=== PATIENT | female | born 2000 | race Two or more races ===

== ENCOUNTER 2023-07-23 10:37 | Emergency (ER) | payer OTHER, SELFPAY ==
[2023-07-23] VITALS (7 sets, daily range): BP systolic 111–139; BP diastolic 67–89; PULSE 72–96; RESP 16–18; TEMP 36.6; O2SAT 97–98; BMI 35.2
--- NOTE | 2023-07-23 10:55 | ECG_ITS ---
Test Reason : CP Blood Pressure : / mmHG Vent. Rate : 068 BPM Atrial Rate : 068 BPM P-R Int : 168 ms QRS Dur : 082 ms QT Int : 410 ms P-R-T Axes : 060 -01 003 degrees QTc Int : 435 ms Normal sinus rhythm with sinus arrhythmia Nonspecific T wave abnormality Abnormal ECG No previous ECGs available Referred By: Generic ED Physician Electronically Signed By:VERÓNICA MCKEON
[2023-07-23 11:16] LABS: MANUAL DIFF FLAG NO
[2023-07-23 11:20] LABS: Basophils Percent Auto 0.3 % (0-2); Eosinophils Absolute Auto 0.2 X10*3/uL (0.0-0.4); Eosinophils Percent Auto 2.7 % (0-4); Hematocrit 36.7 % (37.0-47.0); Hemoglobin 12.4 g/dl (12.0-16.0); Imm Gran Abs Auto 0.02 X10*3/uL (0.00-0.03); Imm Gran Pct Auto 0.2 % (0.0-0.4); Lymphocytes Absolute Auto 1.5 X10*3/uL (1.2-4.9); Mean Corpuscular HGB Conc 33.8 g/dl (31.0-35.0); Mean Corpuscular Hemoglobin 27.9 pg (27.0-33.0); Mean Corpuscular Volume 82.7 fL (80.0-98.0); Mean Platelet Volume 12.3 fL (9.4-12.3); Monocytes Absolute Auto 0.4 X10*3/uL (0.1-1.2); Monocytes Percent Auto 4.5 % (2-11); Neutrophils Absolute Auto 6.5 x10*3/uL (2.0-8.3); Neutrophils Percent Auto 75.3 % (45-73); Platelet Count 182 X10*3/uL (160-400); Red Blood Count 4.44 X10*6/uL (4.20-5.50); Red Cell Distribution Width 12.5 % (11.0-16.0); White Blood Count 8.6 X10*3/uL (4.8-10.8)
[2023-07-23 11:34] LABS: Anion Gap 12 (12-20); Blood Urea Nitrogen 10 mg/dL (9-16); Calcium 9.3 mg/dL (8.4-10.2); Carbon Dioxide 23 mmol/L (22-29); Chloride 110 mmol/L (96-108); Creatinine Clr Calc Pharmacy 123.6; Estimated Glomerular Filt Rate > 60; Glucose Random 115 mg/dL (60-115); Potassium 3.9 mmol/L (3.3-5.1); Sodium 141 mmol/L (135-145)
[2023-07-23] MEDS: Ondansetron ODT 4 MG TAB.RAPDIS TRANSLINGU (11:38)
[2023-07-23 11:46] LABS: Troponin-I High Sensitivity < 2.7 ng/L (<3.5-17.0)
--- NOTE | 2023-07-23 13:03 | ED.SYNCOPE ---
HPI - Syncope General Chief Complaint: Syncope Stated Complaint: syncope episode, per ems Time Seen by Provider: 07/23/23 13:01 Source: patient Mode of arrival: EMS Limitations: no limitations History of Present Illness HPI narrative: 19-year-old female with no PMHx presenting to the ED today via EMS s/p syncopal episode at work prior to arrival with no physical complaints. Reports squinting to read something on the computer when the computer brightness began irritating her eyes and she became clammy and felt faint, causing her to lose consciousness and fall. Denies hitting her head. The fall was witnessed by coworkers. Not on anticoagulation. Was not confused upon waking up, the episode lasted only a few seconds. Was able to stand up and ambulate afterwards. Coworkers called EMS. She states that she has had very little sleep and poor p.o. intake for the last day. Admits to chronic chest discomfort and palpitations since she was a child. Cannot recall if she was ever diagnosed with anything. Report remote history of binge eating disorder. Reports recent family stressors however feels safe at home. Father at bedside. Headache, dizziness, confusion, fever, chills, vision changes, SOB, abdominal pain, numbness/tingling/weakness of the extremities. Related Data Allergies Allergy/AdvReac Type Severity Reaction Status Date / Time No Known Allergies Allergy Verified 07/23/23 10:50 Review of Systems Review of Systems: Constitutional: No fever, No chills, No fatigue, No malaise ENT/Mouth: No ear pain, No hearing loss,? No nasal congestion, No sinus pain, No rhinorrhea Eyes: No eye pain, No swelling, No redness, No vision changes, No foreign body, No discharge Cardio: + chest pain, + palpitations, No dyspnea on exertion, No orthopnea, No edema Respiratory: No SOB, No cough, No sputum, No wheezing, No dyspnea, No hemoptysis, No smoke exposure GI: No nausea, No vomiting, No hematemesis, No abdominal pain, No diarrhea, No constipation : No irregular bleeding, No dysuria, No frequency, No urgency, No hesitancy, No hematuria, No flank pain MSK: No back pain, No neck pain, No joint pain, No myalgias Skin: No skin lesions, No rashes Neuro: No weakness, No numbness, No paresthesias, + LOC, No dizziness, No headache Psych: No anxiety/panic, No depression, No SI/HI, No AH/VH Heme/Lymph: No bruising, No bleeding, No lymphadenopathy Endocrine: No Polyuria, No Polydipsia, No Temperature Intolerance Yes all other systems are reviewed and are negative [facility] Past Medical History Attestation statement: The following information was validated with the patient. Source: old records reviewed and nursing notes reviewed Social History Social History Smoked in Last 30 Days: No Use of substances other than those prescribed or required for medical reasons: No Advance Directives: No Physical Exam Vital Signs: Vital Signs: Last Vital Signs Temp 98 F 07/23/23 10:51 Pulse 80 07/23/23 15:52 Resp 16 07/23/23 15:52 BP 111/67 07/23/23 15:52 Pulse Ox 97 07/23/23 15:52 O2 Del Method Room Air 07/23/23 15:52 BMI result Body Mass Index 35.2 Vital signs stable General: Nontoxic appearing. NAD. Lying comfortably in bed. Skin: Warm and dry. No rashes or lesions. Head: Normocephalic, atraumatic. EENT: Conjunctiva clear. Sclera is anicteric. PERRLA. EOM intact. Nasal septum is midline. Nares patent bilaterally. Moist mucous membranes. No tongue laceration. Controlling secretions. Neck: Supple without LAD. Normal ROM. Trachea midline.? Cardiac: Chest wall symmetric. Regular rate and rhythm. S1 and S1 appreciated. No MRG. No JVD. Lungs: CTA bilaterally. No rales, rhonchi, or wheezes. Normal respiratory effort without accessory muscle use. Abdomen: No visible lesions or scars. Soft, non-tender, non-distended. No rebound tenderness or guarding. Normoactive BS x4. Spine: Cervical, thoracic or lumbar spine no midline tenderness. Full ROM. No obvious deformity or step-off. Ext: Upper and lower extremities atraumatic. Full ROM throughout. Strength 5/5 throughout. Capillary refill <2 seconds throughout. Pulses 2+ equal and bilateral. No edema, cyanosis, or clubbing. Neuro: Alert and oriented x3. Normal speech. CN 2-12 grossly intact.?Sensation intact to light touch.? NV intact distally. Reflexes 2+ bilaterally. Ambulating without difficulty. Normal vxyorx-vc-hcgo and onxo-bn-fzzo. Psych: Appropriate mood and affect. Responds appropriately to questions.? Course Course Course Narrative: 1429-- patient's nurse just informed me that patient is now complaining of abdominal pain. On re-evaluation of patient, she tells me that she is no longer having abdominal pain and that it was resolved by eating a cracker. I performed a 2nd abdominal exam which was unremarkable. Abdomen nontender to palpation without rebound or guarding, normoactive bowel sounds throughout. I do not believe that abdominal imaging is indicated at this time. Will start IV fluids and re-evaluate. 1442--CBC without leukocytosis or anemia. Chemistry without any acute electrolyte abnormalities requiring intervention. Troponin negative. 1534--the patient placed in physician observation at 3:34pm, awaiting UA and orthostatic vitals. 1610-- urine negative for infection. Urine negative. Orthostatics negative. Troponin negative x2. Patient's workup CT was unremarkable. Patient's syncopal episode likely secondary to low p.o. intake as patient has not had much to eat in the past 2 days and did not eat breakfast this morning prior to going to work. Discussed the importance of increasing p.o. intake. Patient states that she feels better after receiving the IV fluids and nausea medications. Has asked the nurse to get her something to be and is tolerating p.o. well. At this time no further investigation warranted. Patient is stable for discharge. Patient agreeable with plan. Discussed worrisome signs and symptoms and when to return to the ED. all questions answered. Medications Administered Discontinued Medications Generic Name Dose Route Start Last Admin Trade Name Freq PRN Reason Stop Dose Admin Sodium Chloride 1,000 mls @ 999 mls/hr 07/23/23 14:00 07/23/23 16:34 Ns IV 07/23/23 15:00 Infused .Q1H1M CHASE Infusion Ondansetron HCl 4 mg 07/23/23 11:24 07/23/23 11:38 Ondansetron Odt 4 Mg Tab.Rapdis TRANSLINGU 07/23/23 11:25 4 mg ONCE ONE Administration Medical Decision Making Medical Decision Making [facility] Narrative: 19-year-old female with no significant past medical history presenting to the ED today via EMS s/p syncopal episode at work prior to arrival with no physical complaints. Vital signs stable. Exam benign. Heart regular rate and rhythm. Lungs was CTA bilaterally. Abdomen soft, nontender, non distended, +bs, no midline spinous tenderness, no step-offs or deformity. Nonfocal exam. Cerebellum intact. Clinical concern for her orthostatic hypotension vs vasovagal syncope vs dehydration vs arrhythmia. Unlikely IUP vs ectopic vs ovarian cyst rupture. Lower suspicion for ACS, PE, intracranial hemorrhage or pathology, cerebellar stroke, CVA or TIA. Plan: Labs, trop, UA, urine , IV fluids, orthostatic vitals Differential Diagnosis Differential Diagnoses: The differential diagnosis associated with the presentation includes Clinical concern for vasovagal syncope vs orthostatic hypotension vs dehydration vs arrhythmia. Unlikely IUP vs ectopic vs ovarian cyst rupture. Lower suspicion for ACS, PE, intracranial hemorrhage or pathology, cerebellar stroke, CVA or TIA. Lab Data MDM Lab Attestation statement: I reviewed the patient's lab results. See above course narrative. 07/23/23 11:10 07/23/23 11:10 Labs: Lab Results 07/23/23 07/23/23 Range/Units 11:10 15:38 WBC 8.6 (4.8-10.8) X10*3/uL RBC 4.44 (4.20-5.50) X10*6/uL Hgb 12.4 (12.0-16.0) g/dl Hct 36.7 L (37.0-47.0) % MCV 82.7 (80.0-98.0) fL MCH 27.9 (27.0-33.0) pg MCHC 33.8 (31.0-35.0) g/dl RDW 12.5 (11.0-16.0) % Plt Count 182 (160-400) X10*3/uL MPV 12.3 (9.4-12.3) fL Immature Gran % (Auto) 0.2 (0.0-0.4) % Neut % (Auto) 75.3 H (45-73) % Lymph % (Auto) 17.0 L (20-40) % [place] % (Auto) 4.5 (2-11) % Eos % (Auto) 2.7 (0-4) % Baso % (Auto) 0.3 (0-2) % Lymph # (Auto) 1.5 (1.2-4.9) X10*3/uL [place] # (Auto) 0.4 (0.1-1.2) X10*3/uL Eos # (Auto) 0.2 (0.0-0.4) X10*3/uL Baso # (Auto) 0.0 (0.0-0.2) X10*3/uL Abs Immat Gran (auto) 0.02 (0.00-0.03) X10*3/uL Absolute Neuts (auto) 6.5 (2.0-8.3) x10*3/uL Absolute Nucleated RBC 0.000 (0.0-0.012) X10*3/uL Nucleated RBC % (auto) 0.0 (0.0-0.2) /100WBC Sodium 141 (135-145) mmol/L Potassium 3.9 (3.3-5.1) mmol/L Chloride 110 H (96-108) mmol/L Carbon Dioxide 23 (22-29) mmol/L Anion Gap 12 (12-20) BUN 10 (9-16) mg/dL Creatinine 0.67 (0.5-1.4) mg/dL Estim Creat Clear Calc 123.6 Estimated GFR > 60 Random Glucose 115 (60-115) mg/dL Calcium 9.3 (8.4-10.2) mg/dL Total Creatine Kinase 76 (26-140) U/L Troponin I High Sens < 2.7 < 2.7 (<3.5-17.0) ng/L Urine Color Yellow Urine Appearance Clear Urine pH 6.0 (5.0-9.0) Ur Specific [place] 1.010 (1.005-1.025) Urine Protein Negative (Neg-Trace) mg/dL Urine Glucose (UA) Negative (Negative) mg/dL Urine Ketones Trace (Negative) mg/dL Urine Blood Small (1+) H (Negative) Urine Nitrite Negative (Negative) Ur Leukocyte Esterase Negative (Negative) Urine RBC 0-2 (0-2) /HPF Urine WBC 0-5 (0-5) /HPF Ur Squamous Epith Cells 6-10 (0-2) /HPF Urine Bacteria None Seen (None Seen) Hyaline Casts 6-10 (0-2) /LPF Urine Test NEGATIVE (NEGATIVE) Independent Interpretation I performed an independent interpretation of an: EKG (Normal sinus rhythm, sinus arrhythmia, rate of 68BPM, no ischemic changes.) Independent Historian Clinical information obtained from an independent historian. History obtained from or confirmed by: Parent (Father) Prescription Management I considered prescription management with: Other (Anti emetics) Core Measures AMI core measures followed: Yes Measure exclusions: not indicated Discharge Plan Discharge Clinical Impression: Vasovagal syncope, Dehydration Patient Disposition: Home, Self-Care Instructions: Dehydration (ED), Syncope (ED) Additional Instructions: Your lab workup was reassuring. Her EKG was unremarkable. Your heart enzymes were negative. Your urine is negative for infection and . You likely fainted due to dehydration. Make sure to stay hydrated and eat throughout the day. Follow-up with their primary care physician this week. Return to the ED with any worsening signs or symptoms. Referrals: [facility] [Provider Group] [facility] [Provider Group] Stand Alone Forms: Work/School Release Interventions: ED Discharge Assessment Last Done: 07/23/23 16:44 Discharge Date/Time: 07/23/23 16:44
--- NOTE | 2023-07-23 14:00 | PC.NURSE ---
pt axox4; neuros intact, strength strong and equal BUE & BLE. pt reports having syncope episode at work approx 0940; unconscious for approx 1 min per coworkers. pt unsure headstrike; - thinners. pt reports feeling nauseous prior to and after episode. pt denies cp/sob/v/d. pt denies extremity pain; skin intact; no bruising/abrasions noted. iv established, labs drawn. ivf infusing. father at bedside. PA to bedside for primary eval. call esteban within reach.
[2023-07-23] MEDS: 0.9 % Sodium Chloride 1,000 ML 999 ML IV (14:44)
[2023-07-23 15:53] LABS: Appearance Urine Clear; Color Urine Yellow; Glucose Urine UA Negative (Negative); Leukocyte Esterase Urine Negative (Negative); Nitrite Urine Negative (Negative); UMIC TRIGGER UACC YES; Urine Blood Small (1+) (Negative); Urine Ketones Trace mg/dL (Negative); Urine Protein Negative (Neg-Trace)
[2023-07-23 15:56] LABS: UPreg QC Valid YES; Urine Pregnancy NEGATIVE (NEGATIVE)
[2023-07-23 16:17] LABS: Troponin-I High Sensitivity < 2.7 ng/L (<3.5-17.0)
[2023-07-23 16:26] LABS: Bacteria Urine None Seen (None Seen); RBC Urine 0-2 /HPF (0-2); WBC Urine 0-5 /HPF (0-5)
== END 2023-07-23 16:44 | disposition home or self-care (01) ==
PROVIDERS: Physician Assistant Medical; Emergency Provider Emergency Medicine
DX: R55 Syncope and collapse (principal); E86.0 Dehydration
CPT/HCPCS: 36415; 80048; 81001; 81025; 82550; 84484; 85025; 93005; 96360; 96361; 99284; 99285